=== PATIENT | male | born 1960 | race Caucasian/White ===

== ENCOUNTER 2017-06-01 07:20 | Day surgery (SDC) | payer BC, MEDICAID, OTHER ==
[~2017-06-01 07:20] MED LIST: Lactated Ringers 1,000 ML IV SCH; Sodium Chloride 0.9% 10 ML Syringe FLUSH PRN
[2017-06-01] MEDS ORDERED: ceFAZolin 2 GM in Premix Bag 1 BAG IV SCH (08:15)
[2017-06-01] MEDS ORDERED: Ondansetron 4 MG/2 ML SDV IVPUSH ONE (08:30)
[2017-06-01] MEDS ORDERED: Dexamethasone 4 MG/ML 5 ML MDV IVPUSH ONE (08:30)
[2017-06-01] MEDS ORDERED: Midazolam 1 MG/ML 2 ML SDV IV ONE (08:30)
[2017-06-01] MEDS ORDERED: Propofol 200 MG/20 ML SDV IV ONE (08:30)
[2017-06-01] MEDS ORDERED: fentaNYL 100 MCG/2 ML SDV IV ONE (08:30)
[2017-06-01] MEDS ORDERED: Lidocaine 2% 100 MG/5 ML Syringe IVPUSH ONE (08:30)
[2017-06-01] MEDS ORDERED: Ketorolac 30 MG/ML SDV IVPUSH ONE (08:30)
[2017-06-01] MEDS ORDERED: Bupivacaine 0.5% 30 ML SDV INJECT ONE (08:50)
[2017-06-01] MEDS ORDERED: Lidocaine 1% with EPINEPHrine 1:100,000 20 ML MDV INJECT ONE (08:50)
--- NOTE | 2017-06-01 09:11 | PCM.OPNOTE ---
- General Post-Op/Procedure Note Date of Surgery/Procedure: 06/01/17 Operative Procedure(s): umbilical hernia. repair with mesh Findings: 1 cm defect Pre Op Diagnosis: umbilical hernia Post-Op Diagnosis: Same Anesthesia Technique: General LMA, Local (8 ml 1% lido with epi/0.5% buvipicaine ) Primary Surgeon: Zafar Calixto Anesthesia Provider: Cari Staples Pathology: none EBL in mLs: 1 Complications: None Condition: Good Free Text/Narrative:: see dictation
--- NOTE | 2017-06-01 09:34 | OR ---
DATE OF OPERATION: 06/01/2017 SURGEON: Zafar Calixto MD PREOPERATIVE DIAGNOSIS: Umbilical hernia. POSTOPERATIVE DIAGNOSIS: Umbilical hernia. PROCEDURE PERFORMED: Umbilical hernia with mesh. INDICATIONS FOR PROCEDURE: This is a 57-year-old white male with a symptomatic umbilical hernia, was offered and accepted repair. INTRAOPERATIVE FINDINGS: The patient had a 1 cm defect, which was replaced, repaired with a Ventralex ST hernia patch, reference #[id number], lot #[id number] with an expiration date of 2018-11-15. DESCRIPTION OF PROCEDURE: After an excellent general anesthetic was administered, the patient was prepped and draped in the usual sterile manner. A 1:1 mixture of 1% lidocaine with epinephrine and 0.5% bupivacaine was used to infiltrate around the umbilicus. Total of approximately 8 mL was used. Curvilinear incision was then made at the base of the patient's umbilicus. Sharp dissection was carried out dissecting the hernia sac free from the surrounding tissue. This was then excised off the posterior aspect of the umbilicus and the preperitoneal fat and hernia sac was excised using electrocautery. After assuring no adhesions of no fat on the anterior abdominal wall fascia, the Ventralex hernia patch was inserted and then sewn into position using a running 0 Prolene. The tails were then excised. An 0 Vicryl was used to tack the umbilicus to the anterior abdominal wall and the skin wound was closed with a running 4-0 Vicryl. Steri-Strips were applied. Needle, sponge, and instrument counts were reported as correct. The patient was taken to recovery room in good condition. /[id number] /MODL
[2017-06-01] MEDS ORDERED: Acetaminophen/HYDROcodone 325-5 MG Tab PO PRN (09:50)
== END 2017-06-01 10:49 | disposition home or self-care (01) ==
LOC: FB.SDS 07:20
PROVIDERS: ATTEND Surgery
DX: K42.9 Umbilical hernia without obstruction or gangrene (principal); J45.20 Mild intermittent asthma, uncomplicated; E66.9 Obesity, unspecified; I10 Essential (primary) hypertension; Z68.36 Body mass index [BMI] 36.0-36.9, adult; Z88.0 Allergy status to penicillin; Z79.899 Other long term (current) drug therapy
CPT/HCPCS: 49585; A9270; C1781; J0690; J7120; 00832-QZ; J1100; J1885; J2250; J2405; J2704; J3010

== ENCOUNTER 2018-11-21 17:17 | Emergency (ER) | payer BC, OTHER ==
[2018-11-21] MEDS ORDERED: predniSONE 20 MG Tab PO ONE (17:58)
[2018-11-21] MEDS ORDERED: Acetaminophen 500 MG Tab PO ONE (17:59)
[2018-11-21] MEDS ORDERED: traMADol 50 MG Tab PO ONE (17:59)
--- NOTE | 2018-11-21 18:06 | EDM.PDOC ---
ED HPI GENERAL MEDICAL PROBLEM - General Chief Complaint: Lower Extremity Injury/Pain Stated Complaint: FALL Time Seen by Provider: 11/21/18 17:42 Source of Information: Reports: Penitentiary Records History Limitations: Reports: No Limitations - History of Present Illness INITIAL COMMENTS - FREE TEXT/NARRATIVE: A few 8-year-old male who reports he has chronic pain in his left lower extremity that has been present for most of his life. He reports that the pain seems to wax and wane in intensity. He also notes that his left leg is shorter than his right leg and he does quite a bit of walking on concrete seems to make his pains worse at times as well. Today, he noticed that when he moved a certain way he had a popping feeling in his left lower back and pelvis area and since that time he has had increased pain in the left hip area posteriorly that seems to be worse with palpation and with movement. He did feel a pop at this time and he relates the pain to this occurring but he also tells me that he has pain pretty much every day this pain seems to be worse. He is rating this pain as very over 10 when he is at rest and a 7/10 when he gets up and has to move around. The pain does seem to radiate down his leg. The point of maximal pain is in his left sacroiliac area. There's been no direct trauma to this area. He' s had no urinary. He has had no blood in his urine. He has had no abdominal pain associated with this. He's had no fever or chills. There are no other associated signs or symptoms. There are no other modifying factors. Onset: Other (Ongoing pain but seems to be worse today.) Duration: Getting Worse (Today, after "incident") Location: Reports: Back, Pelvis (Serially) Quality: Reports: Sharp, Throbbing, Other (Radiating) Severity: Moderate ([id number]) Improves with: Reports: Rest Worsens with: Reports: Other (Palpation), Movement Context: Reports: Activity (As above) Associated Symptoms: Reports: No Other Symptoms Treatments BILL PEDDLER: Reports: Other (see below) Other Treatments BILL PEDDLER: 400 ibuporphen this am. left hip/leg Pain Score (Numeric/FACES): 4 - Related Data Allergies Allergy/AdvReac Type Severity Reaction Status Date / Time Penicillins Allergy Rash Verified 11/21/18 17:25 Home Meds: Home Meds Albuterol [IJD: Albuterol HFA] 2 puff IH Q4HR PRN 05/31/17 [History] Sodium Chloride 5% [Antonio 128 5% Ophth Soln] 1 drop EYELF BID 05/31/17 [History] Triamcinolone Acetonide [Kenalog 0.1% Crm] 1 applic TOP TID PRN 05/31/17 [ History] methylPREDNISolone [Medrol] 4 mg PO ASDIRECTED #1 dosepk 11/21/18 [Rx] traMADol [Ultram] 50 mg PO Q6H PRN #14 tab 11/21/18 [Rx] Past Medical History HEENT History: Reports: Cataract, Other (See Below) Other HEENT History: IRIDOCYCLITIS, BORDERLINE GLAUCOMA WITH OCULAR HYPERTENSION , CORNEAL EDEMA Cardiovascular History: Reports: Hypertension Respiratory History: Reports: Asthma Gastrointestinal History: Reports: Chronic Diarrhea Genitourinary History: Reports: BPH Endocrine/Metabolic History: Reports: Obesity/BMI 30+ Dermatologic History: Reports: Other (See Below) Other Dermatologic History: RASH ON LEG - Past Surgical History HEENT Surgical History: Reports: Cataract Surgery, Eye Surgery GI Surgical History: Reports: Cholecystectomy Musculoskeletal Surgical History: Reports: Carpal Tunnel Social & Family History - Tobacco Use Smoking Status *Q: Never Smoker Second Hand Smoke Exposure: No - Caffeine Use Caffeine Use: Reports: Coffee, Soda - Alcohol Use Alcohol Use History: No - Living Situation & Occupation Living situation: Reports: (Here with his ) Occupation: Employed (He works at [employer]) Review of Systems - Review of Systems Review Of Systems: See Below Constitutional: Reports: No Symptoms Eyes: Reports: 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, unchanged) Ears: Reports: No Symptoms Nose: Reports: No Symptoms Mouth/Throat: Reports: No Symptoms Respiratory: Reports: No Symptoms Cardiovascular: Reports: No Symptoms GI/Abdominal: Reports: No Symptoms Genitourinary: Reports: No Symptoms Musculoskeletal: Reports: Back Pain (At sacroiliac area on left side with radiation down left buttock to thigh) Skin: Reports: No Symptoms Neurological: Reports: No Symptoms ED EXAM, GENERAL - Physical Exam Exam: See Below Exam Limited By: No Limitations General Appearance: Alert, WD/WN, Mild Distress Eye Exam: Left Eye: Other (Chronic changes in left eye), Bilateral Eye: EOMI Ears: Normal External Exam Ear Exam: Bilateral Ear: Auricle Normal Nose: Normal Inspection, Normal Mucosa, No Blood Throat/Mouth: Normal Inspection, Normal Oropharynx, Normal Voice, No Airway Compromise Head: Atraumatic, Normocephalic Neck: Normal Inspection, Supple, Non-Tender, Full Range of Motion Respiratory/Chest: No Respiratory Distress, Lungs Clear, Normal Breath Sounds, No Accessory Muscle Use, Chest Non-Tender Cardiovascular: Normal Peripheral Pulses, Regular Rate, Rhythm, No Edema, No JVD Peripheral Pulses: 2+: Radial (L), Radial (R) GI/Abdominal: Normal Bowel Sounds, Soft, Non-Tender, No Mass Back Exam: Full Range of Motion, Other (Tender over left sacroiliac area. There is no erythema. There is no crepitus. There is no Licking area. Increase in warmth.) Extremities: Non-Tender, Normal Capillary Refill, Other (Left leg does appear smaller than the right leg) Skin Exam: Warm, Dry, Intact, Normal Color, No Rash Course - Vital Signs Last Recorded V/S: Last Vital Signs Temp 36.5 C 11/21/18 17:17 Pulse 67 11/21/18 17:17 Resp 14 11/21/18 17:17 BP 158/79 H 11/21/18 17:17 Pulse Ox 96 11/21/18 17:17 - Orders/Labs/Meds Meds: Medications Discontinued Medications Generic Name Dose Route Start Last Admin Trade Name Marco Antonio PRN Reason Stop Dose Admin Acetaminophen 1,000 mg 11/21/18 17:59 11/21/18 18:19 Tylenol Extra Strength PO 11/21/18 18:00 1,000 mg ONETIME ONE Administration Prednisone 60 mg 11/21/18 17:58 11/21/18 18:20 Prednisone PO 11/21/18 17:59 60 mg ONETIME ONE Administration Tramadol HCl 50 mg 11/21/18 17:59 11/21/18 18:19 Ultram PO 11/21/18 18:00 50 mg ONETIME ONE Administration - Re-Assessments/Exams Free Text/Narrative Re-Assessment/Exam: 11/21/18 18:00: Patient with apparent acute worsening of chronic left leg pain and appears to have sacroiliac joint inflammation. He did give a history of wrenching the area but no direct trauma. He is to continue using the ibuprofen as needed for pain. I will give him a dose of prednisone now and place him on a Medrol Dosepak. I will also give him a prescription for tramadol to help with more severe pain. He is to decrease use for the next few days and then gradually increase use as tolerated. Departure - Departure Time of Disposition: 18:05 Disposition: Home, Self-Care 01 Condition: Good (Stable) Clinical Impression: Sacroiliitis, Chronic pain of left lower extremity - Discharge Information Prescriptions: methylPREDNISolone [Medrol] 4 mg PO ASDIRECTED #1 dosepk traMADol [Ultram] 50 mg PO Q6H PRN #14 tab PRN Reason: Moderate to severe pain Instructions: Sacroiliac Joint Dysfunction Referrals: Karyn Goldstein NP [Primary Care Provider] - Forms: ED Department Discharge Additional Instructions: You appear to have an inflammation of the right iliac joint on the left side coupled with an exacerbation of your chronic left leg pain. There does not appear to be any fracture. There does not appear to be any infection. You should continue to take ibuprofen 800 mg by mouth every 8 hours as needed for pain. Apply either cool or warm compresses to the area for comfort. Avoid prolonged walking for the next few days and then of activity as tolerated. Medication as prescribed (Medrol Dosepak, tramadol 50 mg). Back to an emergency department for redness, fever, marked increase in pain, abdominal pain, problems urinating or any other concerning sign or symptom.
== END 2018-11-21 18:25 | disposition home or self-care (01) ==
LOC: FB.ED 17:17
DX: M46.1 Sacroiliitis, not elsewhere classified (principal); M79.605 Pain in left leg; G89.29 Other chronic pain; I10 Essential (primary) hypertension; J45.909 Unspecified asthma, uncomplicated; E66.9 Obesity, unspecified; Z88.0 Allergy status to penicillin; Z98.49 Cataract extraction status, unspecified eye; Z90.49 Acquired absence of other specified parts of digestive tract; Z79.899 Other long term (current) drug therapy
CPT/HCPCS: 99283; A9270

== ENCOUNTER 2020-05-04 18:42 | Emergency (ER) | payer MEDICAID ==
[2020-05-04] MEDS ORDERED: Sodium Chloride 0.9% 10 ML Syringe FLUSH PRN (18:54)
[2020-05-04] MEDS ORDERED: Acetaminophen 500 MG Tab PO ONE (18:55)
[2020-05-04] MEDS ORDERED: Sodium Chloride 0.9% 1,000 ML IV SCH (19:00)
--- NOTE | 2020-05-04 20:13 | EDM.PDOC ---
ED HPI GENERAL MEDICAL PROBLEM - General Chief Complaint: Fever Stated Complaint: COVID Time Seen by Provider: 05/04/20 19:20 Source of Information: Reports: Patient History Limitations: Reports: No Limitations - History of Present Illness INITIAL COMMENTS - FREE TEXT/NARRATIVE: Patient presented to the ED because of increasing cough, wekaness, and dyspnea. His symptoms started 1 week ago but worse today. He was covid positive yesterday. There is no N/V/D. Midsternal chest Pain Score (Numeric/FACES): 3 - Related Data Allergies Allergy/AdvReac Type Severity Reaction Status Date / Time Penicillins Allergy Rash Verified 11/21/18 17:25 Home Meds: Home Meds Albuterol [IJD: Albuterol HFA] 2 puff IH Q4HR PRN 05/31/17 [History] Sodium Chloride 5% [Antonio 128 5% Ophth Soln] 1 drop EYELF BID 05/31/17 [History] Triamcinolone Acetonide [Kenalog 0.1% Crm] 1 applic TOP TID PRN 05/31/17 [History] methylPREDNISolone [Medrol] 4 mg PO ASDIRECTED #1 dosepk 11/21/18 [Rx] traMADol [Ultram] 50 mg PO Q6H PRN #14 tab 11/21/18 [Rx] Azithromycin [Zithromax] 250 mg PO DAILY #6 tablet 05/04/20 [Rx] dexAMETHasone [Dexamethasone] 6 mg PO Q8H #30 tab 05/04/20 [Rx] Past Medical History HEENT History: Reports: Cataract, Other (See Below) Other HEENT History: IRIDOCYCLITIS, BORDERLINE GLAUCOMA WITH OCULAR HYPERTENSION, CORNEAL EDEMA Cardiovascular History: Reports: Hypertension Respiratory History: Reports: Asthma Gastrointestinal History: Reports: Chronic Diarrhea Genitourinary History: Reports: BPH Endocrine/Metabolic History: Reports: Obesity/BMI 30+ Dermatologic History: Reports: Other (See Below) Other Dermatologic History: RASH ON LEG - Past Surgical History HEENT Surgical History: Reports: Cataract Surgery, Eye Surgery GI Surgical History: Reports: Cholecystectomy Musculoskeletal Surgical History: Reports: Carpal Tunnel Social & Family History - Family History Family Medical History: No Pertinent Family History - Caffeine Use Caffeine Use: Reports: Coffee, Soda - Living Situation & Occupation Living situation: Reports: (Here with his ) Occupation: Employed (He works at [employer]) ED ROS GENERAL - Review of Systems Review Of Systems: See Below Constitutional: Reports: No Symptoms HEENT: Reports: No Symptoms Respiratory: Reports: Shortness of Breath, Cough Cardiovascular: Reports: No Symptoms Endocrine: Reports: No Symptoms GI/Abdominal: Reports: No Symptoms : Reports: No Symptoms Musculoskeletal: Reports: No Symptoms Skin: Reports: No Symptoms Neurological: Reports: No Symptoms ED EXAM, GENERAL - Physical Exam Exam: See Below Exam Limited By: No Limitations General Appearance: Alert, No Apparent Distress Eye Exam: Bilateral Eye: PERRL Ears: Normal External Exam, Normal Canal Nose: Normal Inspection, Normal Mucosa Throat/Mouth: Normal Inspection, Normal Lips, Normal Teeth Head: Atraumatic, Normocephalic Neck: Normal Inspection, Supple, Non-Tender, Full Range of Motion Respiratory/Chest: No Respiratory Distress, Lungs Clear, Normal Breath Sounds Cardiovascular: Normal Peripheral Pulses, Regular Rate, Rhythm, No Edema GI/Abdominal: Normal Bowel Sounds, Soft, Non-Tender, No Organomegaly Back Exam: Normal Inspection, Full Range of Motion Extremities: Normal Inspection, Normal Range of Motion, Non-Tender Course - Vital Signs Text/Narrative:: Labs/EKG/CXR was discussed with patient NS 1 L bolus Oxygen VNX @ 2L Azithromycin 500 mg po x1 Dexamethasone 6 mg po x1 Tylenol 1000 mg po x1 Last Recorded V/S: Last Vital Signs Temp 37.9 C 05/04/20 20:30 Pulse 88 05/04/20 20:30 Resp 20 05/04/20 20:30 BP 128/70 05/04/20 20:30 Pulse Ox 92 L 05/04/20 20:30 - Orders/Labs/Meds Orders: Active Orders 24 hr Category Date Time Status Oxygen Therapy Adult [Oxygen Therapy, ED] [RC] Care 05/04/20 18:45 Active ASDIRECTED Saline Lock Insert [OM.PC] Routine Oth 05/04/20 18:54 Ordered EKG 12 Lead [EK] Routine Ther 05/04/20 18:54 Ordered Labs: Laboratory Tests 05/04/20 05/04/20 05/04/20 Range/Units 19:08 19:08 19:08 WBC 11.1 H (3.2-10.1) x10-3/uL RBC 4.47 (3.90-5.90) x10(6)uL Hgb 12.9 (12.9-17.7) g/dL Hct 39.7 (38.3-50.1) % MCV 88.8 (80.8-98.7) fL MCH 28.9 (27.0-33.3) pg MCHC 32.5 (28.7-35.3) g/dL RDW 15.1 H (12.4-15.0) % Plt Count 229 (117-477) x10(3)uL MPV 7.5 (6.7-11.0) fL Neut % (Auto) 91.2 H (40.3-71.8) % Lymph % (Auto) 3.5 L (15.8-45.3) % Ward % (Auto) 5.1 L (5.5-15.2) % Eos % (Auto) 0.0 L (0.1-6.8) % Baso % (Auto) 0.2 L (0.3-3.8) % Neut # (Auto) 10.1 H (1.7-6.9) x10-3/uL Lymph # (Auto) 0.4 L (0.5-4.5) x10-3/uL Ward # (Auto) 0.6 (0.0-1.2) x10-3/uL Eos # (Auto) 0.0 (0.0-0.6) x10-3/uL Baso # (Auto) 0.0 (0.0-0.3) x10-3/uL Sodium 136 (135-145) mmol/L Potassium 3.7 (3.5-5.3) mmol/L Chloride 98 L (100-110) mmol/L Carbon Dioxide 26 (21-32) mmol/L BUN 12 (7-18) mg/dL Creatinine 0.8 (0.70-1.30) mg/dL Est Cr Clr Drug Dosing TNP Estimated GFR (MDRD) > 60 (>60) BUN/Creatinine Ratio 15.0 (9-20) Glucose 287 H (80-116) mg/dL Calcium 8.5 L (8.6-10.2) mg/dL Total Bilirubin 0.5 (0.1-1.3) mg/dL AST 38 H (5-25) IU/L ALT 55 H (12-36) U/L Alkaline Phosphatase 66 (56-112) IU/L Troponin I 15.9 (4.0-60.3) pg/mL NT-Pro-B Natriuret Pep 133 H (<=125) pg/mL Total Protein 7.3 (6.0-8.0) g/dL Albumin 3.4 (3.2-4.6) g/dL Globulin 3.9 g/dL Albumin/Globulin Ratio 0.9 Meds: Medications Discontinued Medications Generic Name Dose Route Start Last Admin Trade Name Freq PRN Reason Stop Dose Admin Acetaminophen 1,000 mg 05/04/20 18:55 05/04/20 19:25 Tylenol Extra Strength PO 05/04/20 18:56 1,000 mg ONETIME ONE Administration Azithromycin 500 mg 05/04/20 20:26 05/04/20 20:38 Zithromax PO 05/04/20 20:27 500 mg NOW STA Administration Dexamethasone 6 mg 05/04/20 20:26 05/04/20 20:38 Dexamethasone PO 05/04/20 20:27 6 mg NOW STA Administration Sodium Chloride 1,000 mls @ 999 mls/hr 05/04/20 19:00 05/04/20 19:24 Normal Saline IV 999 mls/hr ASDIRECTED EDENILSON Administration Sodium Chloride 10 ml 05/04/20 18:54 Saline Flush FLUSH ASDIRECTED PRN Keep Vein Open Departure - Departure Time of Disposition: 20:20 Disposition: Home, Self-Care 01 Condition: Good Clinical Impression: COVID-19 - Discharge Information Prescriptions: dexAMETHasone [Dexamethasone] 6 mg PO Q8H #30 tab Azithromycin [Zithromax] 250 mg PO DAILY #6 tablet Instructions: COVID-19 Frequently Asked Questions Referrals: Karyn Goldstein NP [Primary Care Provider] - Forms: ED Department Discharge Additional Instructions: Please read discharge instructions instructions on COVID 19 Increase oral fluids Zpak as directed Take dexamethasone 6 mg daily for 10 days Take Vit C-500 mg, D-2000 Units, And Zinc 50 mg daily for 14 days Follow up if symptoms worsens Sepsis Event Note (ED) - Focused Exam Vital Signs: Vital Signs Temp Pulse Resp BP Pulse Ox Pulse Ox 05/04/20 20:30 37.9 C 88 20 128/70 92 L 05/04/20 20:01 93 22 H 128/66 91 L 05/04/20 20:00 92 L 05/04/20 19:25 98 05/04/20 19:20 37.3 C 99 20 116/58 L 98 - My Orders Last 24 Hours: My Active Orders 05/04/20 18:45 Oxygen Therapy Adult [Oxygen Therapy, ED] [] ASDIRECTED 05/04/20 18:54 Saline Lock Insert [OM.PC] Routine EKG 12 Lead [EK] Routine - Assessment/Plan Last 24 Hours: My Active Orders 05/04/20 18:45 Oxygen Therapy Adult [Oxygen Therapy, ED] [] ASDIRECTED 05/04/20 18:54 Saline Lock Insert [OM.PC] Routine EKG 12 Lead [EK] Routine
[2020-05-04] MEDS ORDERED: Azithromycin 500 MG Tab PO STA (20:26)
[2020-05-04] MEDS ORDERED: Dexamethasone 2 MG Tab PO STA (20:26)
--- NOTE | 2020-05-04 20:41 | CR ---
CHEST ONE VIEW INDICATION: Cough, dyspnea, positive Covid 05/03/2020. Symptoms times a week. AP upright portable view of the chest 05/04/2020 was compared with 12/21/2008. Evidence of exogenous obesity is noted. The heart did not appear grossly enlarged. The mediastinum was unremarkable. Bridging hyperostotic changes are noted in the upper middle to lower thoracic spine. A definite active infiltrate or effusion was not identified. IMPRESSION: No acute process. MTDD
== END 2020-05-04 20:55 | disposition home or self-care (01) ==
LOC: FB.ED 18:42
DX: U07.1 COVID-19 (principal); I10 Essential (primary) hypertension; J45.909 Unspecified asthma, uncomplicated; E66.9 Obesity, unspecified; Z68.36 Body mass index [BMI] 36.0-36.9, adult; Z88.0 Allergy status to penicillin; Z79.899 Other long term (current) drug therapy
CPT/HCPCS: 36415; 71045; 80053; 83880; 84484; 85025; 99285-25; A9270-GY; J7030; J8540

== ENCOUNTER 2020-05-06 17:16 | Emergency (ER) | payer MEDICAID ==
[2020-05-06] MEDS ORDERED: Sodium Chloride 0.9% 10 ML Syringe FLUSH PRN (18:01)
--- NOTE | 2020-05-06 19:37 | CT ---
INDICATION: COVID-positive, hemoptysis, coughing. CT CHEST WITHOUT CONTRAST: Spiral 3.75 mm axial sections were obtained through the chest without contrast with sagittal, coronal and axial reconstructions 05/06/20 and compared with chest x-ray of 05/04/20. Total exam DLP was 916.05 mGy-cm. Compared with the previous chest x-ray, there is now noted extensive bilateral ground-glass infiltration scattered throughout the lungs with subpleural changes definitely present also, showing in those subpleural areas a greater degree of infiltration severity. The appearance would be compatible with COVID-19 and should be correlated clinically. No pleural effusion was seen. The heart did not appear grossly enlarged, but appeared to be near the upper limits of normal in size. No pericardial effusion was seen. Mediastinal lymphadenopathy is mild to moderate and may be reactive to infection. No mediastinal mass was seen. Evidence of cholecystectomy is noted in the upper abdomen included on the study. IMPRESSION: 1. Extensive ground-glass infiltration and subpleural areas of patchy pneumonia suggestive of COVID-19 pneumonia. 2. Heart may be at the upper limits of normal in size. Report was called to Dr. Jacob at 1858 hours. [facility]
--- NOTE | 2020-05-06 20:34 | EDM.PDOC ---
ED HPI GENERAL MEDICAL PROBLEM - General Chief Complaint: Respiratory Problem Stated Complaint: COVID SYMPTOMS Time Seen by Provider: 05/06/20 19:20 Source of Information: Reports: Patient History Limitations: Reports: No Limitations - History of Present Illness INITIAL COMMENTS - FREE TEXT/NARRATIVE: Patient presented to the ED because of increasing dyspnea and hemoptysis. He was diagnosed with Covid 05/03 but his symptoms started on 04/26/20. Today he had hemotysis x 2, initially blood ting and now with clotted blood. Treatments [employer]: Reports: Other Medication(s) - Related Data Allergies Allergy/AdvReac Type Severity Reaction Status Date / Time Penicillins Allergy Rash Verified 11/21/18 17:25 Home Meds: Home Meds Albuterol [IJD: Albuterol HFA] 2 puff IH Q4HR PRN 05/31/17 [History] Sodium Chloride 5% [Antonio 128 5% Ophth Soln] 1 drop EYELF BID 05/31/17 [History] Triamcinolone Acetonide [Kenalog 0.1% Crm] 1 applic TOP TID PRN 05/31/17 [History] traMADol [Ultram] 50 mg PO Q6H PRN #14 tab 11/21/18 [Rx] Azithromycin [Zithromax] 250 mg PO DAILY #6 tablet 05/04/20 [Rx] dexAMETHasone [Dexamethasone] 6 mg PO Q8H #30 tab 05/04/20 [Rx] Past Medical History HEENT History: Reports: Cataract, Other (See Below) Other HEENT History: IRIDOCYCLITIS, BORDERLINE GLAUCOMA WITH OCULAR HYPERTENSION, CORNEAL EDEMA Cardiovascular History: Reports: Hypertension Respiratory History: Reports: Asthma Gastrointestinal History: Reports: Chronic Diarrhea Genitourinary History: Reports: BPH Endocrine/Metabolic History: Reports: Obesity/BMI 30+ Dermatologic History: Reports: Other (See Below) Other Dermatologic History: RASH ON LEG - Infectious Disease History Infectious Disease History: Reports: None - Past Surgical History HEENT Surgical History: Reports: Cataract Surgery, Eye Surgery GI Surgical History: Reports: Cholecystectomy Musculoskeletal Surgical History: Reports: Carpal Tunnel Social & Family History - Family History Family Medical History: No Pertinent Family History - Tobacco Use Tobacco Use Status *Q: Never Tobacco User - Caffeine Use Caffeine Use: Reports: None - Recreational Drug Use Recreational Drug Use: No - Living Situation & Occupation Living situation: Reports: (Here with his ) Occupation: Employed (He works at [employer]) ED ROS GENERAL - Review of Systems Review Of Systems: See Below Constitutional: Reports: No Symptoms HEENT: Reports: No Symptoms Respiratory: Reports: Shortness of Breath, Cough, Sputum, Hemoptysis Cardiovascular: Reports: No Symptoms Endocrine: Reports: No Symptoms GI/Abdominal: Reports: No Symptoms : Reports: No Symptoms Musculoskeletal: Reports: No Symptoms Skin: Reports: No Symptoms Neurological: Reports: No Symptoms Psychiatric: Reports: No Symptoms ED EXAM, GENERAL - Physical Exam Exam: See Below Exam Limited By: No Limitations General Appearance: Alert, No Apparent Distress Eye Exam: Bilateral Eye: PERRL Ears: Normal External Exam, Normal Canal, Hearing Grossly Normal Nose: Normal Inspection, Normal Mucosa, No Blood Throat/Mouth: Normal Inspection, Normal Lips, Normal Teeth Head: Atraumatic, Normocephalic Neck: Normal Inspection, Supple, Non-Tender, Full Range of Motion Respiratory/Chest: No Respiratory Distress, Lungs Clear, No Accessory Muscle Use, Decreased Breath Sounds Cardiovascular: Normal Peripheral Pulses, Regular Rate, Rhythm, No Edema, No Gallop, No JVD, No Murmur GI/Abdominal: Normal Bowel Sounds, Soft, Non-Tender, No Organomegaly Back Exam: Normal Inspection, Full Range of Motion Extremities: Normal Inspection, Normal Range of Motion Course - Vital Signs Text/Narrative:: Labs/Chest Ct was discussed with patient O2 VNC @ 2L Last Recorded V/S: Last Vital Signs Temp 36.7 C 05/06/20 17:20 Pulse 75 05/06/20 19:00 Resp 20 05/06/20 19:00 BP 149/88 H 05/06/20 19:00 Pulse Ox 93 L 05/06/20 19:00 - Orders/Labs/Meds Orders: Active Orders 24 hr Category Date Time Status Oxygen Therapy [RC] ASDIRECTED Care 05/06/20 18:03 Active Sodium Chloride 0.9% [Saline Flush] Med 05/06/20 18:01 Active 10 ml FLUSH ASDIRECTED PRN Saline Lock Insert [OM.PC] Routine Oth 05/06/20 18:01 Ordered Medication Orders Sodium Chloride (Saline Flush) 10 ml FLUSH ASDIRECTED PRN PRN Reason: Keep Vein Open Labs: Laboratory Tests 05/06/20 05/06/20 05/06/20 Range/Units 18:15 18:15 18:15 WBC 14.0 H (3.2-10.1) x10-3/uL RBC 4.54 (3.90-5.90) x10(6)uL Hgb 13.2 (12.9-17.7) g/dL Hct 40.2 (38.3-50.1) % MCV 88.7 (80.8-98.7) fL MCH 29.1 (27.0-33.3) pg MCHC 32.8 (28.7-35.3) g/dL RDW 15.1 H (12.4-15.0) % Plt Count 333 (117-477) x10(3)uL MPV 7.6 (6.7-11.0) fL Neut % (Auto) 91.4 H (40.3-71.8) % Lymph % (Auto) 4.5 L (15.8-45.3) % [place] % (Auto) 3.6 L (5.5-15.2) % Eos % (Auto) 0.0 L (0.1-6.8) % Baso % (Auto) 0.5 (0.3-3.8) % Neut # (Auto) 12.8 H (1.7-6.9) x10-3/uL Lymph # (Auto) 0.6 (0.5-4.5) x10-3/uL [place] # (Auto) 0.5 (0.0-1.2) x10-3/uL Eos # (Auto) 0.0 (0.0-0.6) x10-3/uL Baso # (Auto) 0.1 (0.0-0.3) x10-3/uL PT 10.4 (9.0-11.1) sec INR 0.96 L (1.00-1.24) APTT 24.2 L (24.4-33.2) SECONDS Sodium 137 (135-145) mmol/L Potassium 3.9 (3.5-5.3) mmol/L Chloride 98 L (100-110) mmol/L Carbon Dioxide 26 (21-32) mmol/L BUN 14 (7-18) mg/dL Creatinine 1.0 (0.70-1.30) mg/dL Est Cr Clr Drug Dosing 55.56 mL/min Estimated GFR (MDRD) > 60 (>60) BUN/Creatinine Ratio 14.0 (9-20) Glucose 277 H (80-116) mg/dL Calcium 8.8 (8.6-10.2) mg/dL Total Bilirubin 0.4 (0.1-1.3) mg/dL AST 44 H D (5-25) IU/L ALT 52 H (12-36) U/L Alkaline Phosphatase 69 (56-112) IU/L Total Protein 7.4 (6.0-8.0) g/dL Albumin 3.2 (3.2-4.6) g/dL Globulin 4.2 g/dL Albumin/Globulin Ratio 0.8 Meds: Medications Generic Name Dose Route Start Last Admin Trade Name Freq PRN Reason Stop Dose Admin Sodium Chloride 10 ml 05/06/20 18:01 Saline Flush FLUSH ASDIRECTED PRN Keep Vein Open Departure - Departure Time of Disposition: 20:40 Disposition: DC/Tfer to Acute Hospital 02 Condition: Good Clinical Impression: COVID-19, Hypoxemia - Discharge Information Referrals: Karyn Goldstein NP [Primary Care Provider] - Sepsis Event Note (ED) - Evaluation Sepsis Screening Result: No Definite Risk - Focused Exam Vital Signs: Vital Signs Temp Pulse Resp BP Pulse Ox Pulse Ox 05/06/20 19:00 75 20 149/88 H 93 L 05/06/20 18:03 96 05/06/20 18:00 102 H 20 148/79 H 95 05/06/20 17:20 36.7 C 83 20 130/72 89 L - My Orders Last 24 Hours: My Active Orders 05/06/20 18:01 Sodium Chloride 0.9% [Saline Flush] 10 ml FLUSH ASDIRECTED PRN Saline Lock Insert [OM.PC] Routine 05/06/20 18:03 Oxygen Therapy [RC] ASDIRECTED - Assessment/Plan Last 24 Hours: My Active Orders 05/06/20 18:01 Sodium Chloride 0.9% [Saline Flush] 10 ml FLUSH ASDIRECTED PRN Saline Lock Insert [OM.PC] Routine 05/06/20 18:03 Oxygen Therapy [RC] ASDIRECTED
== END 2020-05-06 23:34 ==
LOC: FB.ED 17:16
DX: U07.1 COVID-19 (principal); R09.02 Hypoxemia; I10 Essential (primary) hypertension; J45.909 Unspecified asthma, uncomplicated; E66.9 Obesity, unspecified; Z68.39 Body mass index [BMI] 39.0-39.9, adult; Z88.0 Allergy status to penicillin
CPT/HCPCS: 71250; 80053; 85025; 85610; 85730; 99285-25